=== PATIENT | female | born 1970 | race American Indian/Alaskan Native ===

== ENCOUNTER 2016-12-18 06:58 | Emergency (ER) | payer SELFPAY ==
[2016-12-18] MEDS ORDERED: MORPHINE IM ONE (08:46)
[2016-12-18] MEDS ORDERED: TORADOL IM ONE (08:46)
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
[2016-12-18 09:48] VITALS: BP 133/73
== END 2016-12-18 09:59 | disposition home or self-care (01) ==
LOC: ED 06:58
DX: S32.009A Unspecified fracture of unspecified lumbar vertebra, initial encounter for closed fracture (principal); V49.59XA Passenger injured in collision with other motor vehicles in traffic accident, initial encounter; Y93.9 Activity, unspecified; Y92.9 Unspecified place or not applicable; Y99.9 Unspecified external cause status
CPT/HCPCS: 96372; 99282; J1885; J2270

== ENCOUNTER 2016-12-20 18:41 | Emergency (ER) | payer SELFPAY ==
[2016-12-20 20:32] VITALS: BP 150/91
== END 2016-12-21 01:33 | disposition left against medical advice (07) ==
LOC: ED 18:41
DX: R07.81 Pleurodynia (principal); Z88.0 Allergy status to penicillin; Z88.8 Allergy status to other drugs, medicaments and biological substances; V49.9XXA Car occupant (driver) (passenger) injured in unspecified traffic accident, initial encounter; Y93.89 Activity, other specified; Y99.9 Unspecified external cause status; Y92.410 Unspecified street and highway as the place of occurrence of the external cause; Z53.21 Procedure and treatment not carried out due to patient leaving prior to being seen by health care provider

== ENCOUNTER 2016-12-21 14:13 | Emergency (ER) | payer OTHER ==
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
[2016-12-21] MEDS ORDERED: TORADOL IM ONE (19:55)
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
[2016-12-21 22:49] VITALS: BP 165/75
== END 2016-12-21 21:00 | disposition home or self-care (01) ==
LOC: ED 14:13
DX: M94.0 Chondrocostal junction syndrome [Tietze] (principal); Z88.0 Allergy status to penicillin; Z88.8 Allergy status to other drugs, medicaments and biological substances
CPT/HCPCS: 71101; 96372; 99283; J1885